=== PATIENT | female | born 1955 | race Caucasian/White ===

== ENCOUNTER 2018-04-11 14:53 | Emergency (ER) | payer SELFPAY ==
--- NOTE | 2018-04-11 16:06 | RAD ---
THREE VIEWS OF THE LEFT FOOT: COMPARISON: None. HISTORY: Left foot pain with tenderness to touch. FINDINGS: Three views left foot show no evidence of acute fracture of dislocation. Mild diffuse soft tissue sw elling is seen. No significant degenerative changes are seen. IMPRESSION: No evidence of acute osseous abnormality. POS: COLIN
[2018-04-11] MEDS ORDERED: Ketorolac Tromethamine 30 MG/ML VIAL ONE (16:14)
== END 2018-04-11 16:37 | disposition home or self-care (01) ==
LOC: ERS 14:53
DX: M19.072 Primary osteoarthritis, left ankle and foot (principal); I10 Essential (primary) hypertension; E78.00 Pure hypercholesterolemia, unspecified; Z79.899 Other long term (current) drug therapy
CPT/HCPCS: 96372; J1885

== ENCOUNTER 2020-05-11 21:48 | Observation (INO) | payer OTHER ==
[2020-05-11] MEDS ORDERED: Nitroglycerin 2% Ointment 1 INCH/1 GM Packet ONE (22:31)
[2020-05-11] MEDS ORDERED: Acetaminophen 500 MG TAB ONE (22:31)
--- NOTE | 2020-05-11 23:32 | PDOC.HHP ---
Hospitalist HPI - History of Present Illness Chest pressure History of Present Illness: Patient with PMH of uncontrolled HTN & previous smoker presents to ED for evaluation of several symptoms including intermittent dizziness/lightheadedness , recurrent syncope and shortness of breath. Tells me that over several months she feels as if "something is just not right." She is rather vague on her description but tells me he has had several episodes of unexplained syncope. Does refer having the feeling of "not feeling right" just before events but she is unable to describe this feeling but tells me is not dizziness, palpitations, chest discomfort. Over the last several weeks she has noted some degree of dyspnea on exertion and mild chest pressure. She admits to remote history of smoking 1-2 packs per week but no diagnosis if COPD. Denies diagnosis of DM or HLD. Admits to being non compliant with medications and uncontrolled hypertension ranging in the 170-200 systolic. Initial ED evaluation at transferring facility per my conversation with ED provider is unremarkable. CT head does show small lacunar infarction of indeterminate age. VS show elevated SBP in the 170s. Hospitalist ROS - Review of Systems Constitutional: denies: fever, chills, sweats, weakness Eyes: denies: pain, vision change ENT: denies: ear pain, ear discharge, nose discharge, nose congestion Respiratory: reports: shortness of breath, SOB with excertion. denies: cough, pleuritic pain, sputum, wheezing Cardiovascular: reports: palpitations (does refer some intermittent palpitations ), light headedness. denies: chest pain (admits to chest pressure/heaviness but no pain), orthopnea, paroxysmal noc. dyspnea, edema Gastrointestinal: denies: nausea, vomiting, abdominal pain, diarrhea Genitourinary: denies: dysuria, frequency, incontinence Musculoskeletal: denies: neck pain, arm pain, back pain Skin: denies: rash, lesions Neurological: denies: weakness, numbness, incoordination, change in speech, confusion, seizures - Exam General Appearance: NAD, awake alert Eye: PERRL, anicteric sclera ENT: normocephalic atraumatic Neck: supple, symmetric, no JVD Heart: RRR, no murmur, no gallops, no rubs, normal peripheral pulses Respiratory: CTAB, no wheezes, no rales, no ronchi, normal chest expansion, no tachypnea Gastrointestinal: soft, non-tender, non-distended Extremities: no cyanosis, no clubbing, no edema Skin: normal turgor Neurological: cranial nerve grossly intact, normal sensation to touch, no weakness, no focal deficits Musculoskeletal: normal tone, normal strength Psychiatric: normal affect, normal behavior, A&O x 3 Hospitalist Results - Radiology Interpretation CT scan - head Status: image reviewed by me (IMPRESSION: 1. No acute cortical infarction. 2. Small lacunar infarction left thalamus of indeterminate age. 3. Chronic small vessel ischemic changes and cerebral volume loss.) Hospitalist H&P A/P - Plan Plan: Problem List 1. Dizziness/lighheadness with recurrent syncope 2. CT with evidence of lacunar infarct 3. Dyspnea on exertion 4. Uncontrolled hypertension 5. Medication non compliance Assessment and Plan 1. Dizziness/lighheadness with recurrent syncope - admit for observation - differentials include CVA, arrythmia, orthostatic event, less likely seizure - monitor telemetry - orthostatic vital signs x 3 - fall precautions - see rest of work up below 2. CT with evidence of lacunar infarct of indeterminate age - likely in setting of uncontrolled hypertension - will proceed with MRI, carotid US & echocardiogram - check fasting lipid profile and A1C 3. Dyspnea on exertion - quite vague on description of her symptoms - follow troponin, lipid profile, A1C, TSH - will proceed with echocardiogram and stress test - pending progression and workup consider cardio consult 4. Uncontrolled hypertension - extensively counseled regarding medication compliance - will restart home medications once med rec completed 5. Medication non compliance - extensively counseled DVT PPX: Lovenox FULL CODE
--- NOTE | 2020-05-11 23:32 | CT ---
CT HEAD WITHOUT IV CONTRAST COMPARISON: None HISTORY: Dizziness. TECHNIQUE: Axial CT imaging at 5 mm intervals from vertex through skull base without contrast FINDINGS: There is decreased attenuation in the periventricular white matter which is nonspecific but likely re flective of chronic small vessel ischemic changes. Low-density focus is seen in left thalamus suggesting a lacunar infarction of indeterminate age. Low-density focus is seen in the inferior aspec t of the left basal ganglia. This was present on study in 2006 is probably due to a dilated perivascular space. There is mild cerebral volume loss. The ventricular system is normal in size, shape, and position for the degree of sulcal atrophy. There is no evidence of an acute infarction, hemorrhage, mass effect, or midline shift. Visualized paranasal sinuses are clear. Osseous structures appear intact. IMPRESSION: 1. No acute cortical infarction. 2. Small lacunar infarction left thalamus of indeterminate age. 3. Chronic small vessel ischemic changes and cerebral volume loss.
[2020-05-11] MEDS ORDERED: Acetaminophen 325 MG TAB PO PRN (23:49)
[2020-05-11 23:59] LABS: Troponin I 0.011 ng/mL (< 0.028)
[2020-05-12 02:17] LABS: #Eosinphils 0.1 thou/uL (0.0-0.7); #Lymphocytes 2.6 thou/uL (1.20-3.40); #Monocytes 0.7 thou/uL (0.11-0.59); #Neutrophils 4.2 thou/uL (1.40-6.50); %Basophils 0.2 % (0.0-1.0); %Eosinophils 1.2 % (0.0-10.0); %Lymphocytes 34.3 % (21.0-51.0); %Monocytes 8.7 % (0.0-10.0); %Neutrophils 55.6 % (42.0-75.0); Hemoglobin 13.6 g/dL (12.0-16.0); Mean Corpuscular HGB CONC 33.6 g/dL (32.0-36.0); Mean Corpuscular Hemoglobin 30.9 pg (27.0-31.0); Mean Corpuscular Volume 91.9 fL (78.0-98.0); Mean Platelet Volume 6.9 fL (7.4-10.4); Platelet Count 295 thou/uL (130-400); RBC Distribution Width 11.9 % (11.5-14.5); White Blood Cell (WBC) Count 7.5 thou/uL (4.8-10.8)
[2020-05-12 02:41] LABS: Troponin I Less than 0.010 ng/mL (< 0.028)
[2020-05-12 02:43] LABS: Hemoglobin A1c 5.9 % (4.0-6.0)
[2020-05-12 02:45] LABS: Anion Gap 14 mmol/L (10-20); BUN (Urea Nitrogen) 15 mg/dL (9.8-20.1); Calc. Creatinine Clearance 0 mL/min (70-130); Calcium 9.1 mg/dL (7.8-10.44); Carbon Dioxide 24 mmol/L (23-31); Cardiac Risk 5.5 (Less than 4.5); Chloride 104 mmol/L (98-107); Cholesterol 198 mg/dl (< 200 Desired); Estimated GFR-MDRD 57; Glucose 124 mg/dL (80-115); HDL Cholesterol 36 mg/dL (>60 Neg Risk); LDL Cholesterol, Calculated 142 mg/dL; Potassium 4.1 mmol/L (3.5-5.1); Sodium 138 mmol/L (136-145); Triglycerides 102 mg/dL (Less than 150)
[2020-05-12 05:25] LABS: Troponin I Less than 0.010 ng/mL (< 0.028)
--- NOTE | 2020-05-12 09:59 | MRI ---
Exam: Brain MRI without contrast HISTORY: Lacunar infarct, noted on CT COMPARISON: None FINDINGS: Calvarial marrow signal intensity: Appropriate T1 signal Gradient echo sequence: No hemorrhage Brain parenchyma: No mass, mass effect or midline shift. Brain volume, age-appropriate. Remote cavita ry lacunar infarct in the left thalamus. Cortical fregoso-white matter differentiation: Preserved Restricted diffusion: Central arterial flow voids are maintained. Absent restricted diffusion White matter signal intensities: T2, FLAIR white matter hyperintensities due to chronic small vessel ischemic changes Sinuses: Adequate aeration of the paranasal sinuses and mastoid air cells. IMPRESSION: 1. Absent restricted diffusion. No acute infarction. 2. Chronic small vessel ischemic changes of the white matter
--- NOTE | 2020-05-12 10:21 | ULT ---
EXAM: Carotid ultrasound HISTORY: Syncope COMPARISON: None TECHNIQUE: Multiplanar grayscale and color Doppler images were obtained in a carotid ultrasound. Spec tral analysis of the Doppler waveforms were performed. FINDINGS: No significant plaque is visualized in either internal carotid artery. No significant plaque is seen in either common carotid artery. The Doppler waveforms are normal in the visualized vessels. Peak systolic velocity in the right internal carotid artery 80 cm/s. Peak systolic velocity in the right common carotid artery 72 cm/s. The right ICA/CCA ratio is 1.1. Peak systolic velocity in the left internal carotid artery 83 cm/s. Peak systolic velocity in the left common carotid artery 79 cm/s. The left ICA/CCA ratio is 1.1. Both vertebral arteries demonstrate antegrade flow without focal stenosis IMPRESSION: No evidence of hemodynamically significant stenosis.
[2020-05-12 12:34] VITALS: BMI 29.5
--- NOTE | 2020-05-12 12:52 | NM ---
NUCLEAR MEDICINE CARDIAC MYOCARDIAL PERFUSION SPECT EJECTION FRACTION STUDY WALL MOTION CINE: DATE: 05/12/2020 HISTORY: 64 year old female with hypertension presents with chest pain TECHNIQUE: Number of days: 1 Rest study: Technetium 99m-sestamibi (Cardiolite) dose:10.1 mCi Exercise stress: Treadmill Stress study: Technetium 99m-sestamibi (Cardiolite) dose:32.9 mCi FINDINGS: CARDIAC (MYOCARDIAL PERFUSION) SPECT On the resting images, there is a small perfusion defect at the anteroseptal corner of the cardiac ap ex. On the stress images, this defect appears to be slightly larger, but it is uncertain whether or not t his represents a small region of harmony-infarct reversible ischemia. There is no chamber dilation. EJECTION FRACTION STUDY Left ventricular EF = 78 % WALL MOTION CINE Normal, including cardiac apex. IMPRESSION: Questionable small region of infarction and small surrounding region of harmony-infarct reversible ische kristie, at the anteroseptal corner of the cardiac apex
[2020-05-12] MEDS: Enoxaparin Sodium 40 MG/0.4 ML SYRINGE SC SCH (12:56)
--- NOTE | 2020-05-12 13:42 | PDOC.HOSPP ---
- Subjective Encounter Date: 05/12/20 Encounter Time: 11:00 Subjective: no chest pain or sob or palp - Objective Vital Signs & Weight: Vital Signs (12 hours) Temp Pulse Resp BP Pulse Ox 05/12/20 12:35 98.1 F 57 L 18 184/84 H 98 Weight Weight 183 lb Result Diagrams: 05/12/20 02:04 05/12/20 02:04 Hospitalist ROS - Medication Medications: Active Medications Generic Name Dose Route Start Last Admin Trade Name Aisha PRN Reason Stop Dose Admin Enoxaparin Sodium 40 mg 05/12/20 09:00 05/12/20 12:56 Lovenox SC Not Given 0900 ABRAHAM - Exam General Appearance: awake alert Eye: PERRL, anicteric sclera ENT: no oropharyngeal lesions, moist mucosa Neck: supple, no JVD Heart: RRR, no murmur Respiratory: no wheezes, no rales Gastrointestinal: soft, non-tender, non-distended, normal bowel sounds Extremities: no cyanosis, no edema Neurological: cranial nerve grossly intact, no focal deficits Psychiatric: normal affect, A&O x 3 Hosp A/P (1) Dizziness Code(s): R42 - DIZZINESS AND GIDDINESS Status: Acute (2) Syncope Code(s): R55 - SYNCOPE AND COLLAPSE Status: Acute Qualifiers: Syncope type: unspecified Qualified Code(s): R55 - Syncope and collapse (3) Hypertension, uncontrolled Code(s): I10 - ESSENTIAL (PRIMARY) HYPERTENSION Status: Acute (4) H/O: CVA (cerebrovascular accident) Code(s): Z86.73 - PRSNL HX OF TIA (TIA), AND CEREB INFRC W/O RESID DEFICITS Status: Chronic (5) Dyslipidemia Code(s): E78.5 - HYPERLIPIDEMIA, UNSPECIFIED Status: Chronic - Plan is on asp, lipitor, losartan with hctz stress test is +ve Mri shows no ac infarct LDL is 142, trop x 3 is -ve, A1c is 5.9 will likely need cath/cardio consultation, echo pending hemostable
[2020-05-12] MEDS ORDERED: Atorvastatin Calcium 40 MG TAB PO SCH (21:00)
[2020-05-12] MEDS ORDERED: Zolpidem Tartrate 5 MG TAB PO SCH (21:00)
[2020-05-12] MEDS: hydrALAZINE 25 MG TAB PO SCH (21:34)
[2020-05-12] MEDS: cloNIDine 0.1 MG TAB PO SCH (21:34)
[2020-05-13] MEDS: Enoxaparin Sodium 40 MG/0.4 ML SYRINGE SC SCH (07:43)
[2020-05-13] MEDS: hydrALAZINE 25 MG TAB PO SCH ×3 (07:44→16:51)
[2020-05-13] MEDS: cloNIDine 0.1 MG TAB PO SCH (07:45)
[2020-05-13] MEDS ORDERED: Hydrochlorothiazide 25 MG TAB PO SCH (09:00)
[2020-05-13] MEDS ORDERED: Aspirin 81 mg Enteric Coated Tablet PO SCH (09:00)
[2020-05-13] MEDS ORDERED: Iopamidol 370 76% 100 ML VIAL ONE (12:39)
[2020-05-13] MEDS ORDERED: Midazolam HCl 2 mg/2 ml Vial ONE (14:27)
[2020-05-13] MEDS ORDERED: Fentanyl 100 MCG/2 ML VIAL ONE (14:27)
--- NOTE | 2020-05-13 14:31 | PDOC.HOSPP ---
- Subjective Encounter Date: 05/13/20 Encounter Time: 08:45 Subjective: no sob or chest pain feels better is ambulating in room is npo for cath - Objective Vital Signs & Weight: Vital Signs (12 hours) Temp Pulse Resp BP BP BP BP 05/13/20 11:23 98.2 F 72 18 162/83 H 05/13/20 08:37 05/13/20 07:40 176/83 H 182/89 H 182/90 H 05/13/20 07:01 97.6 F 18 191/88 H 05/13/20 03:21 98.3 F 64 20 159/80 H 163/86 H 149/79 H Pulse Ox 05/13/20 11:23 98 05/13/20 08:37 98 05/13/20 07:40 05/13/20 07:01 98 05/13/20 03:21 98 Weight Weight 183 lb Result Diagrams: 05/12/20 02:04 05/12/20 02:04 Hospitalist ROS - Medication Medications: Active Medications Generic Name Dose Route Start Last Admin Trade Name Frejhony PRN Reason Stop Dose Admin Aspirin 81 mg 05/13/20 09:00 05/13/20 07:45 Ecotrin PO 81 mg DAILY ABRAHAM Administration Atorvastatin Calcium 40 mg 05/12/20 21:00 05/12/20 21:34 Lipitor PO 40 mg HS ABRAHAM Administration Clonidine 0.1 mg 05/12/20 21:00 05/13/20 07:45 Catapres PO Not Given BID ABRAHAM Enoxaparin Sodium 40 mg 05/12/20 09:00 05/13/20 07:43 Lovenox SC 40 mg 0900 ABRAHAM Administration HCTZ/Losartan Potassium 1 tab 05/13/20 09:00 05/13/20 07:44 Hyzaar 50/12.5 PO 1 tab DAILY ABRAHAM Administration Hydralazine HCl 50 mg 05/12/20 21:00 05/13/20 12:24 Apresoline PO 50 mg QID ABRAHAM Administration Hydrochlorothiazide 25 mg 05/13/20 09:00 05/13/20 07:45 Hydrochlorothiazide PO 25 mg DAILY ABRAHAM Administration Zolpidem Tartrate 10 mg 05/12/20 21:00 05/12/20 21:35 Ambien PO 10 mg HS ABRAHAM Administration - Exam General Appearance: awake alert Eye: PERRL, anicteric sclera ENT: no oropharyngeal lesions, moist mucosa Neck: supple, no JVD Heart: RRR, no murmur Respiratory: no wheezes, no rales Gastrointestinal: soft, non-tender, non-distended, normal bowel sounds Extremities: no cyanosis, no edema Neurological: cranial nerve grossly intact, no focal deficits Psychiatric: normal affect, A&O x 3 Hosp A/P (1) Dizziness Code(s): R42 - DIZZINESS AND GIDDINESS Status: Resolved (2) Syncope Code(s): R55 - SYNCOPE AND COLLAPSE Status: Resolved Qualifiers: Syncope type: unspecified Qualified Code(s): R55 - Syncope and collapse (3) Hypertension, uncontrolled Code(s): I10 - ESSENTIAL (PRIMARY) HYPERTENSION Status: Resolved (4) H/O: CVA (cerebrovascular accident) Code(s): Z86.73 - PRSNL HX OF TIA (TIA), AND CEREB INFRC W/O RESID DEFICITS Status: Chronic (5) Dyslipidemia Code(s): E78.5 - HYPERLIPIDEMIA, UNSPECIFIED Status: Chronic - Plan is on asp, lipitor, losartan with hctz stress test is +ve, cath today. Mri shows no ac infarct LDL is 142, trop x 3 is -ve, A1c is 5.9 dc plan based on cath results hemostable
[2020-05-13] MEDS ORDERED: Sodium Chloride 0.9% 200 ML IV PRN (14:51)
[2020-05-13] MEDS ORDERED: Acetaminophen/Codeine 30-300mg Tablet PO PRN (14:51)
[2020-05-13] MEDS ORDERED: Sodium Chloride 0.9% 500 ML IV SCH (15:00)
[2020-05-13 15:18] VITALS: BP 169/78; TEMP 98.1
--- NOTE | 2020-05-13 15:21 | CON ---
DATE OF CONSULTATION: 05/13/2020 REASON FOR CONSULTATION: Abnormal stress test. HISTORY OF PRESENT ILLNESS: Ms. Jimenez is a very pleasant 64-year-old white female, who comes to the hospital for evaluation of dizziness and lightheadedness. She was admitted and evaluated and part of the evaluation included a stress test, which showed findings suggestive of apical ischemia, so Cardiology is being consulted. Ms. Jimenez denies any chest pain, tightness, or pressure. No shortness of breath. She is a smoker. PAST MEDICAL HISTORY: Hypertension. SOCIAL HISTORY: Smokes 1 to 2 packs a week. OUTPATIENT MEDICATIONS: 1. Clonidine 0.1 mg p.o. b.i.d. 2. Ambien 10 mg at bedtime. 3. Losartan/hydrochlorothiazide 50/12.5 daily. 4. Hydrochlorothiazide 25 mg a day. 5. Aspirin 81 a day. 6. Hydralazine 50 mg q.i.d. ALLERGIES: SULFA DRUGS. FAMILY HISTORY: Noncontributory. REVIEW OF SYSTEMS: A 12-point review of systems was done and was all negative unless stated in the history of present illness. PHYSICAL EXAMINATION: VITAL SIGNS: Temperature 98.2, pulse 72, respiratory rate 18, saturating 98% on room air, blood pressure 162/83. GENERAL: Awake, alert, and oriented x3, in no distress. HEENT: Normocephalic and atraumatic. NECK: Supple. LUNGS: Clear. CARDIOVASCULAR: S1 and S2. No S3 or S4. No murmurs. ABDOMEN: Soft. Positive bowel sounds. EXTREMITIES: No edema. SKIN: Warm and dry. LABORATORY DATA: Laboratory work was reviewed. CBC and chemistries were reviewed. Troponin was undetectable x3. TSH was normal. Triglycerides of 102, cholesterol 198, LDL of 142, HDL of 36. DIAGNOSTIC STUDIES: EKG was reviewed and normal. Stress test showed a small region of infarction with harmony-infarct ischemia in the anteroseptal apex. ASSESSMENT: 1. Dizziness. 2. Uncontrolled hypertension. 3. Noncompliance. 4. Abnormal stress test. PLAN: We will further risk stratify with a heart catheterization. We spoke at length about the risks and benefits of the procedure. Risks included, but not limited to stroke, NH, , bleeding, need for blood transfusion, limb loss, organ loss. The patient understands and verbalized understanding of this and agrees to proceed. Further recommendations per results of coronary angiogram. Job ID: [id number]
--- NOTE | 2020-05-13 16:11 | DIS ---
DATE OF ADMISSION: 05/11/2020 DATE OF DISCHARGE: 05/13/2020 DISCHARGE DISPOSITION: Home. PRIMARY DISCHARGE DIAGNOSES: 1. Dizziness, syncope, both resolved. 2. HTN which was uncontrolled, is stable at the time of discharge. Possible ac cva in the left thalamus with no motor deficits. 3. History of cerebrovascular accident. 4. Dyslipidemia. PROCEDURES DONE DURING HOSPITALIZATION: The patient has had CT brain done, which showed no acute cortical infarct, small lacunar infarct in the left thalamus of indeterminate age. MRI brain without contrast done showed no acute infarct, nuclear stress test, questionable small region of infarction and small surrounding region of harmony-infarct reversible ischemia at the anteroseptal corner of the cardiac apex, ejection fraction was 78%. Carotid Doppler showed no hemodynamically significant stenosis. Cardiac catheterization done by Dr. Booker showed no significant coronary artery disease, normal LV ejection fraction. LABORATORY DATA: H and H of 13 and 40, platelet count 295, MCV is 91, BUN 15, creatinine 0.9. Total cholesterol 198, triglycerides 102, LDL 142, HDL 36, TSH 2.6. Troponin x3 negative. BNP less than 10. DISCHARGE MEDICATIONS: 1. Aspirin 81 mg p.o. daily. 2. Atorvastatin 40 mg p.o. at bedtime. 3. Losartan with hydrochlorothiazide 50/12.5 mg daily. 4. Hydralazine 50 mg 4 times daily. 5. Clonidine 0.1 mg twice daily. 6. Ambien 10 mg p.o. at bedtime. ALLERGIES: SULFA. DISCHARGE PLAN: The patient to follow up with her primary care physician, Dr. Jolanta Benito in 1 week. BRIEF COURSE DURING HOSPITALIZATION: The patient initially got admitted on the with complaints of dizziness and passing out. This was recurrent and was associated with shortness of breath as well. In view of this history and risk factors, the patient was placed under observation on telemetry. She has had complete neurologic and cardiac workup done. She has had a nuclear stress test done, which was suspicious for possible small area of reversibility at the apex for which a cardiac catheterization was done by Dr. Booker. The cardiac cath did not reveal any flow-limiting disease. She has a small lacunar infarct in the thalamic area. She is ambulating and eating well prior to discharge. The patient was placed on Lipitor in addition to aspirin. She was counseled with regard to medication compliance and followup with her primary care physician. Please see a [id number] documentation for the day of discharge on [place]. Job ID: [id number]
== END 2020-05-13 17:18 | disposition home or self-care (01) ==
LOC: ERS 21:48 → ERHOLD 23:28 → 2NO 05-12 09:55
PROVIDERS: ADMIT Internal Medicine; ATTEND Internal Medicine
PROC: 4A023N7 Measurement of Cardiac Sampling and Pressure, Left Heart, Percutaneous Approach (ICD-10-PCS; principal; 2020-05-13)
PROC: B2111ZZ Fluoroscopy of Multiple Coronary Arteries using Low Osmolar Contrast (ICD-10-PCS; 2020-05-13)
DX: R42 Dizziness and giddiness (principal); R55 Syncope and collapse; I10 Essential (primary) hypertension; E78.5 Hyperlipidemia, unspecified; R07.89 Other chest pain; R06.09 Other forms of dyspnea; R94.39 Abnormal result of other cardiovascular function study; F41.9 Anxiety disorder, unspecified; F32.9 Major depressive disorder, single episode, unspecified; F17.210 Nicotine dependence, cigarettes, uncomplicated; Z86.73 Personal history of transient ischemic attack (TIA), and cerebral infarction without residual deficits; Z79.82 Long term (current) use of aspirin; Z79.899 Other long term (current) drug therapy; Z88.2 Allergy status to sulfonamides; Z91.14 Patient's other noncompliance with medication regimen
CPT/HCPCS: 36415; 70450; 70551; 78452; 80048; 80061; 83036; 83880; 84443; 84484; 85025; 93005; 93017; 93306; 93458; 93880; 94760; 96372; 99152; 99153; A9500; C1760; G0378; J1644; J1650; J2250; J3010; Q9967

== ENCOUNTER 2024-10-14 14:34 | Outpatient (CLI) | payer BC, MEDICARE | END 2024-10-14 14:35 | disposition home or self-care (01) | LOC: BICMAMMO 14:34 | PROVIDERS: ATTEND Nurse Practitioner Family | DX: N64.4 Mastodynia (principal) | CPT/HCPCS: 77066; G0279 ==